=== PATIENT | male | born 1970 | race Caucasian/White ===

== ENCOUNTER → 2019-05-06 | Outpatient (CLI) | payer MEDICARE, OTHER ==
--- NOTE | 2019-05-06 12:12 | ECHOS ---
STRESS ECHOCARDIOGRAM INDICATIONS: Syncope MEDICATIONS: None. BASELINE HEART RATE: 96 BASELINE BLOOD PRESSURE: 101/79 MAXIMUM HEART RATE: 153 MAXIMUM BLOOD PRESSURE: 151/68 85% MPHR: 145 100% MPHR: 171 METS: 9.0 MAXIMUM STAGE REACHED: 3 TOTAL EXERCISE TIME: 8:00 CLINICAL INFORMATION: Baseline EKG shows sinus rhythm, normal axis, normal intervals. Patient exercised on Jeffrey protocol for a total of 8 minutes achieving 9 METS, 89% of predicted maximal heart rate without chest pain or diagnostic ST-segment depression. Baseline echo shows normal left ventricular size wall motion systolic function. Postexercise there is normal hyperdynamic response of all segments of myocardium noted. CONCLUSION: 1. Good exercise tolerance. 2. Negative stress test by EKG criteria. 3. Negative stress echo. MMODL / IJN: [id number] /
--- NOTE | 2019-05-12 09:47 | HM ---
HOLTER MONITOR REPORT A 24-hour Holter monitor. The patient was monitored for 24 hours. The baseline rhythm appeared to be sinus mechanism with a minimum heart rate of 51 beats per minute, max heart rate 154 beats per minute and average heart rate of 88 beats per minute. Ventricular ectopic events and supraventricular ectopic events were seen rarely. No evidence of any advanced AV block. No evidence of sinus pause or sinus arrest. The patient was asymptomatic. CONCLUSION: 1. This is a 24-hour Holter monitor. 2. Sinus rhythm as a baseline mechanism. 3. Rare ventricular ectopic events. 4. Supraventricular ectopic events. 5. No evidence of sinus pause or sinus arrest. 6. No evidence of any advanced AV block. 7. The patient reported no symptoms. MMODL / IJN: [id number] /
== END | disposition home or self-care (01) ==
LOC: RADNMMAIN 10:01
PROVIDERS: ATTEND Family Medicine
DX: I49.3 Ventricular premature depolarization (principal)
CPT/HCPCS: 93225; 93226; 93351

== ENCOUNTER → 2019-09-17 | Day surgery (SDC) | payer MEDICARE, OTHER ==
[2019-09-16 16:02] VITALS: BMI 32.4
[~2019-09-17] MED LIST: DEXAMETHASONE SOD PHOSPHATE 10 MG/ML 1 ML VIAL IV ONE; HYDROmorphone 0.5 MG/0.5 ML SYRINGE IVP PRN; LACTATED RINGERS 1,000 ML IV SCH; MIDAZOLAM 2 MG/2 ML VIAL IV PRN; ONDANSETRON 4 MG/2 ML VIAL IVP ONE
== END ==
LOC: OR 12:58
PROVIDERS: ATTEND Orthopaedic Surgery
DX: Z53.9 Procedure and treatment not carried out, unspecified reason (principal)